=== PATIENT | female | born 1975 | race Two or more races ===

== ENCOUNTER 2024-06-27 16:20 | Emergency (ER) | payer OTHER, SELFPAY ==
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
[2024-06-27 16:34] VITALS: BP 164/98; PULSE 81; RESP 18; TEMP 36.6; O2SAT 100
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
[2024-06-27] MEDS: IBUPROFEN 600 MG TABLET PO (17:20)
[2024-06-27] MEDS: HYDROcodone/acetaminophen (*CRX) 5-325 MG TABLET 1 TAB PO (17:20)
== END 2024-06-27 18:09 | disposition home or self-care (01) ==
LOC: ANHED 17:59
PROVIDERS: Emergency Provider Emergency Medicine
DX: M54.2 Cervicalgia (principal); V43.63XA Car passenger injured in collision with pick-up truck in traffic accident, initial encounter
CPT/HCPCS: 70450; 72125; 99284; A9270